=== PATIENT | female | born 1945 | race Caucasian/White ===

== ENCOUNTER → 2016-05-16 | Outpatient (CLI) | payer MEDICARE, OTHER ==
[~2016-05-16] MED LIST: ALBUTEROL17 GM INH; ALDACTONE25 MG PO; ALLERGY25 MG PO; ATENOLOL PO; AZULFIDINE ENT500 MG PO; B COMPLEX1 CA1 PO; BENTYL20 M1 PO; BUDESONIDE0.5 MG/2 M IH; BUSPIRONE HCL15 MG PO; CARBIDOPA-LEVO1 EAC1 PO; CHOLESTERAL MED PO; DARVOCET-N 1001 TAB PO; DOXYCYCLINE PO; EFFEXOR XR PO; ESCITALOPRAM OX10 MG PO; ESCITALOPRAM OX20 MG PO; FLEXERIL10 MG PO; FOLIC ACID1 MG PO; KCL PO; KLONOPIN PO; KLOR-CON PO; LASIX20 MG PO; LEVOTHYROXINE75 MCG PO; LEVOXYL50 MC1 PO; METOPROLOL SUCC25 MG PO; MIRAPEX1 MG PO; MIRAPEX1.5 MG PO; MOBIC15 MG PO; MULTAQ400 MG PO; NAPROSYN500 MG PO; NIACIN500 M2 PO; OMEPRAZOLE20 M2 PO; OMEPRAZOLE40 M1 PO; OXAPROZIN600 MG PO; PACERONE PO; PERCOCET 5-3251 TAB PO; PERCOCET5/325 PO; PRADAXA75 MG PO; PRAMIPEXOLE DI0.5 MG PO; PREDNISOLONE5 MG PO; PRENATAL VITAMI1 TA4 PO; PROBENECID-COL1 EACH PO; PROTONIX PO; REQUIP1 MG PO; SEROQUEL XR150 MG PO; SPIRIVA18 MCG INH; XARELTO20 MG PO; ZYLOPRIM100 MG PO
--- NOTE | ~2016-05-16 | CT52 ---
[facility] A Service of [facility] & [facility] RADIOLOGY TEXT RESULTS PATIENT: PAUL VASQUEZ LOCATION: [facility] : 41 UNIT #: [id number] AGE: [address]: Jeny Leonard MD SEX: F ORDER DR: [id number] [address] [address] [id number] MR#: [id number] Acc #: [id number] NAME: PAUL VASQUEZ : 1945 SEX: F STUDY DATE/TIME: 05/16/2016 12:48 UNIT: [facility] ROOM: STUDY DESCRIPTION: CT Cervical Spine Wo Cont Attending Physician: Jeny Leonard M.D. Referring Physician: Jeny Leonard M.D. Ordering Physician: Jeny Leonard M.D. Primary Care Physician: Jeny Leonard M.D. MEDICAL IMAGING REPORT This report is preliminary unless electronic signature is present. EXAM Cervical spine CT no contrast, 05/16/2016 COMPARISON Prior cervical spine CT, 10/13/2012 HISTORY Several month history of left side neck pain radiating to left arm. History of cervical spine surgery approximally 24 years previously. TECHNIQUE This CT exam was performed with one or more of the following radiation dose reduction techniques: automatic exposure control, adjustment of mA and/or kV according to patient size, and iterative reconstruction. FINDINGS Redemonstrated changes of surgical fusion at C3-4 and C6-7 with a 7-1 anterolisthesis. No change in alignment. There is solid osseous union at 3-4. There is no evidence of loosening nor is there convincing evidence of solid osseous union at 6-7, that appearance is unchanged. There is a degenerative scoliosis and there is anterolisthesis at 3-4 and 7-1 but again these findings are unchanged since the prior study. No fracture or bone erosion or destruction at any level. The paraspinous soft tissues are remarkable for atherosclerotic vascular calcifications at the cervical carotid bifurcations. At 2-3, the canal and right foramen are normal and there is [id number] left foraminal narrowing. At 3-4, there is mild canal stenosis and moderate left and moderate to severe right foraminal stenosis. At 4-5, there is mild canal stenosis and no left but [id number] [facility] A Service of [facility] & [facility] RADIOLOGY TEXT RESULTS PATIENT: PAUL VASQUEZ LOCATION: [facility] : 41 UNIT #: [id number] AGE: [address]: Jeny Leonard MD SEX: F ORDER DR: right foraminal stenosis. At 5-6, there is minimal canal narrowing and minimal left but moderate right foraminal narrowing. At 6-7, there is mild canal stenosis and moderate to severe or severe right and moderate to severe left foraminal stenosis. At 7-1, there is no canal stenosis. The left foramen is normal but there is moderate or moderate to severe right foraminal stenosis. IMPRESSION Multilevel cervical degenerative change without convincing significant interval change since October 13, 2012. Dictated by... Varinder Paulson M.D. THIS IS AN ELECTRONICALLY VERIFIED REPORT Varinder Paulson M.D. at 05/17/2016 1:51 PM VAMSI/odin TD: 05/17/2016 08:49 JOB #: [id number] MEDICAL IMAGING REPORT Page 1 of 1
== END | disposition home or self-care (01) ==
LOC: SCT 12:39
DX: M54.12 Radiculopathy, cervical region (principal); M47.812 Spondylosis without myelopathy or radiculopathy, cervical region
CPT/HCPCS: 72125

== ENCOUNTER 2016-07-04 09:58 | Inpatient (IN) | payer MEDICARE, OTHER ==
--- NOTE | ~2016-07-04 | CO ---
Unit #: [id number] #: [id number] Patient: PAUL SALINAS [id number] [address] [address] [id number] MR#: [id number] NAME: PAUL SALINAS ROOM: [facility] Age: 71 Sex: F Admission Date: 07/04/2016 : 1945 Attending Physician: Laura Arana M.D. Primary Care Physician: Jeny Leonard M.D. Consultation Date: 07/04/2016 CONSULTATION REPORT CHIEF COMPLAINT Right hip injury. HISTORY OF PRESENT ILLNESS Ms. Salinas is a 71-year-old female known to me who fell at home landing on her right hip. She is actually in the process of being scheduled for a shoulder replacement. She was going through medical clearance and had recently been cleared. However, she was at home when she tripped and fell outside landing on her right hip. She was unable to bear weight. She was brought to the emergency room where x-rays were taken. She was noted to have a displaced femoral neck fracture. She was admitted to the medical service. She notes pain in the hip. No prior problems with the hip. It is worse with motion, it is better with rest. She describes a dull ache. PAST MEDICAL HISTORY 1. History of alcohol and polysubstance abuse. 2. Atrial fibrillation on Pradaxa. 3. Hypertension. 4. CHF. 5. COPD. 6. Sleep apnea. 7. GERD. 8. Anxiety. 9. Depression. PAST SURGICAL HISTORY 1. Colonoscopy and EGD. 2. Bilateral shoulder surgery. 3. Neck surgery. 4. Appendectomy. 5. Tubal ligation. 6. Cataract surgery. 7. Pacemaker placement. HOME MEDICATIONS 1. Aldactone. 2. Probenecid. 3. Pacerone. 4. Folic acid. 5. Pramipexole. 6. Escitalopram. 7. Seroquel. 8. Carbidopa/levodopa. 9. Omeprazole. Unit #: [id number] #: [id number] Patient: PAUL SALINAS 10. Flexeril. 11. Potassium. 12. Pradaxa. 13. Levothyroxine. ALLERGIES No known drug allergies. SOCIAL HISTORY The patient lives with her . She does drink alcohol daily. She does not smoke. She used to smoke. No illicit drug use. FAMILY HISTORY Noncontributory. REVIEW OF SYSTEMS No other pertinent positives or negatives noted other than what is mentioned in the HPI. She reports she has not taken her Pradaxa for about a week. PHYSICAL EXAMINATION VITAL SIGNS: Temperature 98.2 degrees Fahrenheit, pulse 73, respiratory rate 17, oxygen saturation 97%, blood pressure 107/70. GENERAL: Patient is alert and oriented for examination. She is in no acute distress. HEENT: Atraumatic, normocephalic. Extraocular movements are intact. Mucous membranes are moist. NECK: Cervical spine is midline. No JVD. Full motion. LUNGS: Breathing is nonlabored and chest rise is symmetric. HEART: Pulse irregularly irregular. ABDOMEN: Soft, nontender, nondistended. EXTREMITIES: No clubbing, cyanosis, or edema of the extremities. No skin lesions. Focused examination of the right lower extremity reveals the leg is shortened and externally rotated. There is painful log roll. Tenderness to palpation over the hip region. She can flex and extend her ankle and toes. DIAGNOSTIC STUDIES LABORATORY: BMP normal. INR normal. CBC normal. IMAGING: AP pelvis and right lateral hip x-ray reviewed. There is a displaced femoral neck fracture noted. IMPRESSION This is a 71-year-old female with a right femoral neck fracture. PLAN We will plan for right hip bipolar hemiarthroplasty. Risks, benefits, and alternatives to surgery were discussed with the patient. She would like to proceed. She is awaiting clearance. As noted, she had clearance through our office for shoulder surgery. Obviously, this will be on hold for awhile. She could have a clear liquid diet. Will plan for surgery in the afternoon tomorrow, 07/05/2016. Risks and benefits of the surgery were discussed. Risks include, but are not limited to, infection, bleeding, nerve injury, blood clots, risks associated with anesthesia, leg length discrepancy, dislocation, need for further surgery and possibly . Unit #: [id number] #: [id number] Patient: PAUL SALINAS Dictated by... Enrique Gillespie M.D. MEDHAT/jumana TD: 07/04/2016 20:26 JOB #: [id number] CONSULTATION REPORT Page 1 of 1 X X CONSULTATION REPORT
--- NOTE | ~2016-07-04 | EKG ---
PATIENT: PAUL VASQUEZ UNIT #: [id number] Ventricular Rate: 60 BPM Atrial Rate: 340 BPM P-R Interval: 264 ms QRS Duration: 132 ms Q-T Interval: 466 ms QTC Calculation(Bezet): 466 ms P Seiling: 95 degrees Calculated R Seiling: -47 degrees Calculated T Seiling: 113 degrees Diagnosis Line: AV dual-paced rhythm with prolonged AV conduction Diagnosis Line: Abnormal ECG Diagnosis Line: When compared with ECG of 19-FEB-2013 16:05, Diagnosis Line: Electronic ventricular pacemaker has replaced Diagnosis Line: Sinus rhythm Diagnosis Line: Confirmed by JIM HURLEY MD ([id number]) on 07/05/2016 Diagnosis Line: 11:13:39 PM INTERPRETING MD: XAVI KEITA
--- NOTE | ~2016-07-04 | EKG ---
PATIENT: PAUL VASQUEZ UNIT #: [id number] Ventricular Rate: 114 BPM Atrial Rate: 114 BPM QRS Duration: 142 ms Q-T Interval: 384 ms QTC Calculation(Bezet): 529 ms Calculated R [place]: -35 degrees Calculated T [place]: 124 degrees Diagnosis Line: Atrial fibrillation with rapid ventricular Diagnosis Line: response Diagnosis Line: Left axis deviation Diagnosis Line: Left ventricular hypertrophy with QRS widening Diagnosis Line: T wave abnormality, consider lateral ischemia or Diagnosis Line: digitalis effect Diagnosis Line: Abnormal ECG Diagnosis Line: When compared with ECG of 04-JUL-2016 10:25, Diagnosis Line: Atrial fibrillation has replaced Electronic Diagnosis Line: ventricular pacemaker Diagnosis Line: Vent. rate has increased BY 54 BPM Diagnosis Line: Confirmed by JONAH JERRY MD ([id number]) on 07/06/2016 Diagnosis Line: 8:09:25 PM INTERPRETING MD: ROSALINO KEITA
--- NOTE | ~2016-07-04 | DS ---
Unit #: [id number] #: [id number] Patient: PAUL VASQUEZ [id number] [address] [place], [place] [address] [id number] MR#: [id number] NAME: PAUL VASQUEZ ROOM: [facility] Age: 71 Sex: F Admission Date: 07/04/2016 : 1945 Discharge Date: 07/07/2016 Attending Physician: Yolanda Jang M.D. Primary Care Physician: Jeny Leonard M.D. DISCHARGE SUMMARY DISCHARGE DIAGNOSES 1. Right femoral fracture. 2. Hypertension. 3. Alcohol dependence. 4. Hypomagnesemia. 5. Moderate protein calorie malnutrition. 6. Chronic systolic heart failure. 7. Atrial fibrillation on chronic anticoagulation. 8. Acute blood loss/postoperative anemia. HOSPITAL COURSE The patient is a 71-year-old female admitted to [facility] on 07/04/2016 after a fall and right hip fracture. She was seen by Cardiology postoperatively and ultimately decided to be acceptable risk for surgery. She was taken to the operating room on 07/05/2016 where she underwent right hip bipolar hemiarthroplasty. She has tolerated the procedure well. At the time of discharge, her antihypertensives are being held secondary to some hypotension that is resolving. Initial blood pressures were 90 systolic and are now 100s at time of discharge so will likely improve with convalescence and ultimately blood pressure medications should be restarted when appropriate. DISCHARGE MEDICATIONS 1. Combivent per nebulizer q.4 h. as needed. 2. Amiodarone 200 mg p.o. daily. 3. Tylenol 325 mg p.o. q.4 h. p.r.n. pain or fever. 4. Pradaxa 75 mg p.o. b.i.d. 5. Lexapro 20 mg p.o. daily. 6. Seroquel 150 mg p.o. h.s. 7. Bisacodyl 10 mg suppository p.r.n. constipation. 8. Senna S one tab p.o. b.i.d. 9. Pramipexole 0.5 mg p.o. h.s. 10. Carbidopa/levodopa 25/250 mg one p.o. h.s. 11. Lortab 10 one p.o. q.4 h. p.r.n. moderate to severe pain. 12. Aldactone 25 mg p.o. b.i.d. 13. Omeprazole 40 mg p.o. daily. 14. Flexeril 10 mg p.o. t.i.d. p.r.n. 15. Synthroid 75 mcg daily. 16. Colchicine/probenecid one tab p.o. daily. 17. Folic acid 1 mg daily. DISPOSITION Unit #: [id number] #: [id number] Patient: PAUL VASQUEZ Patient being discharged to rehab. FOLLOWUP Patient should follow with Dr. Gillespie, orthopedics, in 2 weeks. Dictated by... Austin López M.D. VIRGILIO/jumana TD: 07/07/2016 17:46 JOB #: [id number] DISCHARGE SUMMARY Page 1 of 1 X Austin López MD X DISCHARGE SUMMARY
--- NOTE | ~2016-07-04 | CR151 ---
[facility] A Service of [facility] & [facility] RADIOLOGY TEXT RESULTS PATIENT: PAUL VASQUEZ LOCATION: [place] [address] : [birth year] UNIT #: [id number] AGE: [address]: Laura Arana MD SEX: F ORDER DR: [id number] [facility] [address] [place], [place] [address] [id number] MR#: [id number] Acc #: [id number] NAME: PAUL VASQUEZ : 1945 SEX: F STUDY DATE/TIME: 07/04/2016 10:42 UNIT: [facility] ROOM: STUDY DESCRIPTION: CR Hip Min 2 Views Rt Attending Physician: Corinne Montoya M.D. Ordering Physician: Corinne Montoya M.D. Primary Care Physician: Jeny Leonard M.D. MEDICAL IMAGING REPORT This report is preliminary unless electronic signature is present EXAM 2 views right hip INDICATIONS Right hip pain starting today after a fall. FINDINGS No oral or dilated. There is a right femoral neck fracture with the femur displaced superiorly relative to the femoral head. Old left inferior pubic ramus fracture is seen. No additional fractures are identified. IMPRESSION Right femoral neck fracture and old left radius fracture. Dictated by... Lashae Springer M.D. THIS IS AN ELECTRONICALLY VERIFIED REPORT Lashae Springer M.D. at 07/04/2016 5:20 PM AFF/to TD: 07/04/2016 12:50 JOB #: [id number] MEDICAL IMAGING REPORT Page 1 of 1 COPY
--- NOTE | ~2016-07-04 | HP ---
Unit #: [id number] #: [id number] Patient: PAUL VASQUEZ [id number] [place] [id number] [facility]. [place], [place] [address] [id number] MR#: [id number] NAME: PAUL VASQUEZ ROOM: Age: 71 Sex: F Admission Date: 07/04/2016 : 1945 Attending Physician: Corinne Montoya M.D. Primary Care Physician: Jeny Leonard M.D. HISTORY AND PHYSICAL CHIEF COMPLAINT Fall, right hip pain. HISTORY OF PRESENT ILLNESS The patient is a 71-year-old female with past medical history of hypertension, atrial fibrillation, chronic anticoagulation with Pradaxa, CHF, COPD, obstructive sleep apnea, GERD, anxiety, depression, alcohol abuse and marijuana abuse who presented to the emergency department for evaluation of the above. The patient is a relatively poor historian. She was apparently in her usual state of health until the morning of admission when she was trying to hang something on her porch and fell. She states that she had on "clogs" and tried to grab on to a swing, which twisted, and she fell. She states that she experienced the immediate onset of right hip pain. She was brought to the emergency department for further evaluation. In the emergency department a right hip x-ray was done and showed right femoral neck fracture. She is being admitted to [facility] for evaluation and further treatment. PAST MEDICAL HISTORY 1. Admission to [facility] within the past year (no records). 2. Admission to [facility] May 28 through June 01, 2012 for alcohol and polysubstance abuse. 3. Atrial fibrillation on chronic anticoagulation with Pradaxa, followed by Dr. Novoa. 4. Hypertension. 5. CHF. 6. COPD, not on home oxygen. The patient sees Dr. Parmar. 7. Obstructive sleep apnea, noncompliant with CPAP. 8. GERD. 9. Anxiety, depression. PAST SURGICAL HISTORY 1. Colonoscopy and EGD. 2. Bilateral shoulder surgery. 3. Cervical disk surgery. 4. Appendectomy. 5. Tubal ligation. 6. Cataract surgery. 7. Pacemaker placement. SOCIAL HISTORY Unit #: [id number] #: [id number] Patient: PAUL VASQUEZ The patient lives with her . She is a daily drinker. She drinks 3-4 glasses of wine daily. The patient quit smoking 10 years ago. She has at least a 20 pack-year smoking history. FAMILY HISTORY Notable for her mother being alive at the age of 92. Her dad at the age of 32 of traumatic injuries. ALLERGIES No known allergies. HOME MEDICATIONS 1. Aldactone 25 mg twice daily. 2. Probenecid Colchicine daily. 3. Pacerone 200 mg daily. 4. Folic acid 1 mg daily. 5. Pramipexole 0.5 mg at bedtime. 6. Escitalopram 20 mg daily. 7. Seroquel 150 mg at bedtime. 8. Carbidopa/levodopa at bedtime. 9. Omeprazole 40 mg daily. 10. Flexeril 10 mg t.i.d. 11. Potassium 10 mEq twice daily. 12. Pradaxa 75 mg twice daily. 13. Levothyroxine 75 mcg daily. REVIEW OF SYSTEMS A complete review of systems is negative except as indicated in the HPI. The patient denies any chest pain. No difficulty breathing. No fever. No cough or cold symptoms. She denies ever having any problems with anesthesia. She states that she has not been taking her Pradaxa for the past week due to possible shoulder surgery. Additionally, the patient denies a history of Parkinson disease. She states that she is on the carbidopa/levodopa for restless leg. PHYSICAL EXAMINATION VITAL SIGNS: Temperature is 97.6, pulse 60, respirations 15, blood pressure 130/74, oxygen saturation 96% on room air. GENERAL: The patient is a female who is sleeping but wakes to voice. HEENT: The head is atraumatic. Mucous membranes are moist. NECK: Supple. Trachea is midline. CARDIOVASCULAR: Regular rate and rhythm. RESPIRATORY: Lungs are clear to auscultation bilaterally with no increased work of breathing. ABDOMEN: Soft, nontender with bowel sounds present in all 4 quadrants. EXTREMITIES: The right hip is tender to palpation and has decreased range of motion secondary to pain. There is no pedal edema. NEUROLOGIC: The patient is oriented x3. She follows commands. PSYCHIATRIC: The patient demonstrates relatively poor insight. She is cooperative. SKIN: Skin of examined areas is warm and dry. DIAGNOSTIC TESTS CARDIOVASCULAR: EKG shows paced rhythm with a rate of 60 beats per minute. IMAGING: Chest x-ray shows cardiomegaly with no evidence of vascular Unit #: [id number] #: [id number] Patient: PAUL VASQUEZ congestion. Right hip x-ray shows femoral neck fracture and old left radius fracture. LABORATORY: Complete blood count is essentially normal. INR is 1.1. Blood alcohol level is less than 5. Comprehensive metabolic panel notable for alkaline phosphatase of 156, total protein 5.7, albumin of 2.9. Urinalysis is essentially negative. Urine tox screen is positive for marijuana, opiates and tricyclics. ASSESSMENT 1. The patient is a 71-year-old female with right femoral neck fracture. The patient's revised Feliciano Cardiac Risk Index is consistent with at least a 1% risk of cardiac , nonfatal myocardial infarction, nonfatal cardiac arrest based on the possible history of heart failure. There is not an echocardiogram in [facility]. The patient possibly had a cardiac catheterization and/or stress test within the past 5 years at [facility]. She sees Dr. Novoa. 2. Status post fall. 3. Hypertension. 4. Atrial fibrillation, on chronic anticoagulation with Pradaxa. The patient has been off Pradaxa for the past week for possible shoulder surgery. 5. Congestive heart failure with unknown ejection fraction. 6. COPD. 7. Obstructive sleep apnea, noncompliant with CPAP. 8. GERD. 9. Anxiety, depression. 10. Alcohol abuse. The patient is a daily drinker. 11. Marijuana abuse. PLAN 1. Admit to intermediate level. 2. Healthy heart diet if passes bedside swallow. 3. NPO after midnight for surgical intervention. 4. Hold Pradaxa for possible surgical intervention. 5. Consult Dr. Gillespie regarding right femoral neck fracture. 6. Consult Dr. Avila for cardiac clearance. 7. Get records from [facility], including cardiac cath and stress test if available. 8. Bed rest. 9. Fall precautions. 10. Serial cardiac enzymes. 11. Supplemental oxygen. 12. DuoNeb p.r.n. 13. Morphine p.r.n. 14. Zofran p.r.n. 15. Alcohol withdrawal protocol. 16. Check magnesium level. 17. Repeat labs in the morning including INR. 18. Additional workup and consultants based on above. 19. Regarding code status, the patient is a full code. Dictated by Laura Arana M.D. JESSICA/angela Unit #: [id number] #: [id number] Patient: PAUL VASQUEZ TD: 07/04/2016 15:34 JOB #: [id number] HISTORY AND PHYSICAL Page 1 of 1 X Laura Arana MD X HISTORY AND PHYSICAL
--- NOTE | ~2016-07-04 | CO ---
Unit #: [id number] #: [id number] Patient: PAUL SALINAS [id number] [place], [place] [address] [id number] I MR#: [id number] NAME: PAUL SALINAS ROOM: [facility] Age: 71 Sex: F Admission Date: 07/04/2016 : 1945 Attending Physician: Laura Arana M.D. Primary Care Physician: Jeny Leonard M.D. Consultation Date: 07/04/2016 CONSULTATION REPORT CHIEF COMPLAINT Status post fall with hip fracture. We have been asked to see for surgical clearance. HISTORY OF PRESENT ILLNESS Ms. Salinas is a 71-year-old, elderly, white female who was seen in the emergency room. She was asleep when I approached her. The patient was difficult to awaken and difficult to bring to present. It took a little bit before she admitted that she fell. She said she fell outside in the backyard, out by the pond. Apparently her found her and called EMS. There is no family at the bedside at present. She states that Dr. Novoa is her cardiology doctor. PAST MEDICAL HISTORY Longstanding history of alcohol abuse, gastroesophageal reflux disease with a large hiatal hernia, atrial fibrillation, chronic anticoagulation, hypertension, congestive heart failure, COPD, obstructive sleep apnea, anxiety and depression, marijuana use. PAST SURGICAL HISTORY Bilateral rotator cuff repair, cervical disc surgery x2, appendectomy, tubal ligation, bilateral cataract removal. HOME MEDICATIONS Citalopram 20 mg daily; Seroquel 150 mg at bedtime; carbidopa/levodopa 25/250 at bedtime; omeprazole 40 mg daily; Flexeril 10 mg daily; Aldactone 25 mg twice daily; probenecid/colchicine daily; Pacerone 200 mg daily; folic acid 100 mg daily; pramipexole 0.5 mg at bedtime; potassium 10 mEq twice daily; Pradaxa 75 mg twice daily; levothyroxine 75 mcg daily. ALLERGIES No known allergies. SOCIAL HISTORY Patient states she quit smoking ten years ago. Prior to that she started smoking at the age of 32. She tells me that she drinks a small bottle of wine once in a while. There is a documented history of one time six beers, plus a half pint of whiskey daily. I currently do not know how much the patient drinks. Marijuana use daily. FAMILY HISTORY Noncontributory. Patient lives with her who again is currently not at bedside. Unit #: [id number] #: [id number] Patient: PAUL SALINAS REVIEW OF SYSTEMS I believe these are unreliable but patient denies fever or chills, denies hematuria, denies melena. Status has been off of her Pradaxa for one week for anticipated shoulder surgery. Otherwise she denies any problems or issues. PHYSICAL EXAMINATION CONSTITUTIONAL: Poorly nourished, mildly cachectic, white female who was awakened from sleep and was confused and then did arouse to a more lucid state. VITAL SIGNS: Temperature 97.7, pulse 69, respirations 16, blood pressure 118/83, 5 feet 8 inches, 57.6 kg. HEENT: Normocephalic atraumatic. No xanthelasma. Pupils equal, round, reactive to light. Extraocular movements intact. No jugular venous distention. No elevated CVP. LUNGS: Clear to auscultation bilaterally. Mildly decreased bases. HEART: S1 and S2. 2/6 systolic murmur. No S3 or S4. Positive bowel sounds. ABDOMEN: Soft, nontender, nondistended. No clubbing, cyanosis or edema. 2+ pulses bilaterally. DIAGNOSTIC STUDIES IMAGING STUDIES: Chest x-ray show cardiomegaly, no evidence of vascular congestion, left diaphragmatic hernia. No acute infiltrates. Left-sided pacemaker. No pneumothorax. No pleural effusion. No displaced rib fractures. Two views of the right hip - right femoral neck fracture and old left radius fracture. CT of the head - no acute traumatic findings. No acute intracranial hemorrhage, mass lesion or acute infarct, galvan-white differentiation is normal. LABORATORY DATA: Chemistry - sodium 136, potassium 4.3, chloride 102, CO2 25, BUN 7, creatinine 0.9, glucose 101, total protein 5.7, albumin 2.9, total bili 0.8, direct bili 0.3, bili indirect 0.5, AST 35, ALT 28, alk phos 156. Alcohol is less than 5. Coagulation - PT 11.4, INR 1.1, PTT 27.8. Hemoglobin 13.0, hematocrit 39.7, white blood cell count 8.4, platelet count 326. Toxicology screen is positive for marijuana, positive for opiates, positive for TCA. Urinalysis is negative. ASSESSMENT AND PLAN 1. Status post fall with right femoral neck fracture. 2. History of hypertension currently well controlled. 3. History of atrial fibrillation with chronic anticoagulation and permanent pacemaker. 12 lead EKG shows an AV dual paced rhythm. 4. Chronic anticoagulation, which has been on hold for one week, reportedly for anticipated shoulder surgery. 5. History of congestive heart failure. 6. COPD. 7. Obstructive sleep apnea. 8. Records have already been requested from [facility] regarding a cardiac cath and stress test if available per primary team. We will obtain a 2D echocardiogram. Cardiac clearance to come per Dr. Avila. Unit #: [id number] #: [id number] Patient: PAUL SALINAS Dictated by... Adrienne Kerr/stefani TD: 07/05/2016 05:41 JOB #: [id number] CONSULTATION REPORT Page 1 of 1 X X CONSULTATION REPORT
--- NOTE | ~2016-07-04 | CT71 ---
[facility] A Service of [facility] RADIOLOGY TEXT RESULTS PATIENT: PAUL VASQUEZ LOCATION: [facility] : 43 UNIT #: [id number] AGE: [address]: Corinne Montoya MD SEX: F ORDER DR: [id number] [facility] [address] [place], [place] [address] [id number] E MR#: [id number] Acc #: [id number] NAME: PAUL VASQUEZ : 1945 SEX: F STUDY DATE/TIME: 07/04/2016 11:21 UNIT: [facility] ROOM: STUDY DESCRIPTION: CT Head Wo Contrast Attending Physician: Corinne Montoya M.D. Ordering Physician: Corinne Montoya M.D. Primary Care Physician: Jeny Leonard M.D. MEDICAL IMAGING REPORT This report is preliminary unless electronic signature is present EXAM CT head INDICATIONS Trauma. Fall and hit the head. TECHNIQUE CT head without contrast. This CT exam was performed with one or more of the following radiation dose reduction techniques: automatic exposure control, adjustment of mA and/or kV according to patient size, and iterative reconstruction. COMPARISON CT head dated 10/25/2014. TECHNIQUE This CT exam was performed with one or more of the following radiation dose reduction techniques: automatic exposure control, adjustment of mA and/or kV according to patient size, and iterative reconstruction. FINDINGS There is no acute intracranial hemorrhage, mass lesion, or acute infarct. Russell-white differentiation is normal. Ventricles and basilar cisterns are normal in size configuration. No extraaxial collections. No acute osseous abnormalities. The visualized paranasal sinuses mastoid air cells are within normal limits. IMPRESSION No acute traumatic findings in the lungs. No interval change. [facility] A Service [facility] RADIOLOGY TEXT RESULTS PATIENT: PAUL VASQUEZ LOCATION: [facility] : 43 UNIT #: [id number] AGE: [address]: Corinne Montoya MD SEX: F ORDER DR: Dictated by... Isaías Davis M.D. THIS IS AN ELECTRONICALLY VERIFIED REPORT Isaías Davis M.D. at 07/04/2016 3:51 PM SHANTANU/mikey TD: 07/04/2016 13:27 JOB #: [id number] MEDICAL IMAGING REPORT Page 1 of 1 COPY
--- NOTE | ~2016-07-04 | CR206 ---
[facility] A Service of [facility] RADIOLOGY TEXT RESULTS PATIENT: PAUL VASQUEZ LOCATION: [place] [address] : [birth year] UNIT #: [id number] AGE: [address]: Yolanda Jang MD SEX: F ORDER DR: [id number] [facility] [address] [place], [place] [address] [id number] I MR#: [id number] Acc #: [id number] NAME: PAUL VASQUEZ : 1945 SEX: F STUDY DATE/TIME: 07/05/2016 19:03 UNIT: [facility] ROOM: Critical access hospital STUDY DESCRIPTION: CR Pelvis 1 or 2 Views Attending Physician: Yolanda Jang M.D. Ordering Physician: Enrique Gillespie M.D. Primary Care Physician: Jeny Leonard M.D. MEDICAL IMAGING REPORT This report is preliminary unless electronic signature is present EXAM Pelvis, 07/05/2016 HISTORY Postop right hip arthroplasty today. COMPARISON Right hip 07/04/2016 FINDINGS Two frontal views of the pelvis demonstrate total right hip arthroplasty. No evidence of hardware complication. Bony pelvis intact. Postsurgical changes in the adjacent soft tissues. IMPRESSION Stable postoperative changes status post right hip arthroplasty Dictated by... Nate Brewer M.D. THIS IS AN ELECTRONICALLY VERIFIED REPORT Nate Brewer M.D. at 07/09/2016 7:47 AM GIOVANY/mikey TD: 07/06/2016 01:28 JOB #: [id number] MEDICAL IMAGING REPORT Page 1 of 1 COPY
--- NOTE | ~2016-07-04 | OR ---
Unit #: [id number] #: [id number] Patient: PAUL SALINAS [id number] [address] [address] [id number] I MR#: [id number] NAME: PAUL SALINAS ROOM: [facility] Date of Procedure: 07/05/2016 Admission Date: 07/04/2016 Surgeon: Enrique Gillespie M.D. : 1945 Attending Physician: Yolanda Jang M.D. Primary Care Physician: Jeny Leonard M.D. OPERATIVE REPORT PREOPERATIVE DIAGNOSIS Right femoral neck fracture. POSTOPERATIVE DIAGNOSIS Right femoral neck fracture. PROCEDURE PERFORMED Right hip bipolar hemiarthroplasty. UTILITY ASSEMBLER Jimmy Salinas CFA. ANESTHESIA General endotracheal. COMPLICATIONS None. SPECIMENS None. DRAINS None. SURGICAL IMPLANTS Luisa bipolar hemiarthroplasty system with a size 11 Advocate stem and 47 mm outer diameter bipolar shell. There was a +10.5 mm neck length along with Palacos R+G cement. INDICATIONS FOR PROCEDURE Ms. Salinas is a 71-year-old, the patient of mine, who had fallen at home injuring her right hip. The patient was noted to have a displaced femoral neck fracture. She was admitted to the Medical Service. It was felt she would benefit from hemiarthroplasty. Risks, benefits, and alternatives of the surgery were discussed with the patient. Risks include, but are not limited to, infection, bleeding, nerve injury, blood clots, risks associated with anesthesia, need for further surgery, and possibly . DESCRIPTION OF PROCEDURE On 07/05/2016, the patient was seen in preoperative holding area, where her surgical site was marked. Preoperative antibiotics were received. H and P and consent updated. The patient was taken to the operating room Unit #: [id number] #: [id number] Patient: PAUL SALINAS and provided general anesthesia. She was moved to the left lateral decubitus position. Right hip was prepped and draped in typical sterile fashion. Time-out performed confirming the correct surgical site and procedure. Standard posterior approach to the hip was performed. Short external rotators were taken down. T-capsulotomy performed. The capsule was tagged with #1 Ethibond suture. Retractor was placed. The femoral neck cut was made. There were 2 fractures within the femoral neck. Once the cut was made, the bone was removed. Next, the femoral head was removed with a double prong device. It was measured at 47 mm. Trial head was placed and noted to be appropriate sized. Next, sequential broaching was taken up to 11 mm. Careful attention to anteversion noted. Trial head was placed and the hip was reduced. At this point, the instruments were removed. The femur was prepared for cementing. Restrictor was placed. It was thoroughly irrigated. Cement was mixed on the back table and injected into the canal once ready. It was packed using my thumb followed by placement of the stem. Again, careful attention to anteversion noted. Excess cement removed. After about 12 minutes, the cement had hardened. Trial heads were placed and the hip was reduced. It was felt a +10.5 mm neck length reduced the hip well with stability and matched leg lengths. The final bipolar head was placed and malleted in position. It was stable. Hip was reduced. Again, leg lengths were stable along with the hip joint. The remainder of 3 L normal saline containing bacitracin was pulsed through the wound. Capsulotomy repaired with 0 Vicryl suture along with the Ethibond. The short external rotators were repaired as well. Deep tissue closed with 0 Vicryl followed by 2-0 Vicryl for subcutaneous tissues and lakhwinder for skin. Xeroform, 4x4s, ABD pad, and tape were placed. Abduction pillow was placed. The patient was subsequently awakened from general anesthesia in stable condition and taken to PACU postoperatively. POSTOPERATIVE PLAN The patient will return to her room. She will be weightbearing as tolerated with posterior hip precautions. She will be on 24-hour antibiotic protocol. She will restart her Pradaxa for DVT prophylaxis. She will have SCDs. No complications encountered during the surgical procedure. Dictated by... Enrique Gillespie M.D. MEDHAT/lynne TD: 07/06/2016 02:09 JOB #: [id number] OPERATIVE REPORT Page 1 of 1 X X PROCEDURE OPERATIVE NOTE
--- NOTE | ~2016-07-04 | A ---
[facility] Nutrition Therapy DATE: 07/05/16 Patient: PAUL FRANKLIN CHRISTINA Physician: REBECCA Address: [address] [place] [address] Room/Bed: [address] [place] [address], Zip: [place] [address] Admit Date: 07/04/16 Date of : 41 Height: 5 8 Weight: 131 59.5 NUTRITIONAL ASSESSMENT: REASON: 5 points malnutrition risk score re: 45 lb weight loss + MD consult for "new admit" Admitting Dx: 71 y/o female admitted with R femur fracture, s/p fall PMH: HTN, CHF, A-FIB, COPD, GERD, anxiety, depression, ETOH/marijuana abuse, obstructive sleep apnea, hx smoking Anthropometrics: Ht: 68", Wt: 59.5 kg (131 lbs), BMI: 19 (normal) Past weights: 148 lbs on 10/25/14 128 lbs on 04/25/15 Labs: Glucose 140 Meds: Thiamine, Folic acid, Therapeutic formula, Synthroid, Morphine, PPI, Zofran prn, D5 w/Nacl @ 75 ml/hr I/O & Bowel function: Last BM 07/03 Skin Integrity: Scars BUE, no edema Assessment: Chart reviewed, events noted. See admitting dx and PMH as stated above. Patient has hx at [facility], drinks 3-4 glasses of wine daily, lives with her , also has hx of marijuana abuse. During the malnutrition risk screen patient reported a 45 lb weight loss is an unknown time frame, however her past weights as stated above do not reflect this loss. Per past weights she has lost maybe 17 lbs in the past 1.5 yrs, if weights are accurate. Visited patient's room @ 0939 hrs this morning and again @ 1235 hrs this afternoon and she asleep both times, did not wake to verbal cues. She is currently getting morphine due to her hip pain, so this is likely the reason she is sleeping a lot today. She is currently NPO awaiting possible hip surgery. Wrote recommendations in chart for regular diet and Ensure BID once she is appropriate for PO diet, she was previously on a healthy heart diet before NPO status. See RD recs below, will follow-up to determine weight history and further nutritional needs. Dx: Unintentional weight loss r/t unknown etilogy AEB 5 points malnutrition risk score. Intervention: Regular diet + Ensure Enlive BID Monitoring, Evaluation and Goals: [facility] Nutrition Therapy DATE: 07/05/16 Patient: PAUL FRANKLIN CHRISTINA Physician: REBECCA Address: [address] [place] [address] Room/Bed: [address] [place] [address], Zip: [place] [address] Admit Date: 07/04/16 Date of : [birth year] Height: 5 8 Weight: 131 59.5 1. Tolerance of diet advancement with PO intake > 50% of meals. 2. Prevent further unintentional weight loss. Monitor: Per protocol, criteria to determine if above goals met Recommendations: 1. Once medically feasible resume oral diet, suggest regular diet with Ensure Enlive BID- please order supplement once diet ordered. Available in chocolate, vanilla or strawberry. 2. Please weigh q 3 days for monitoring purposes. 3. Encourage ETOH cessation. 4. Continue vitamins. RD will follow hospital course Mild-moderate nutrition risk Respectfully, An Hyde, RD, LD [facility] cc: client file
--- NOTE | ~2016-07-04 | CR72 ---
[facility] A Service of [facility] & [facility] RADIOLOGY TEXT RESULTS PATIENT: PAUL VASQUEZ LOCATION: [place] [address] : 43 UNIT #: [id number] AGE: [address]: Laura Arana MD SEX: F ORDER DR: [id number] [facility] [address] [place], [place] [address] [id number] E MR#: [id number] Acc #: [id number] NAME: PAUL VASQUEZ : 1945 SEX: F STUDY DATE/TIME: 07/04/2016 10:40 UNIT: [facility] ROOM: STUDY DESCRIPTION: CR Chest Single View Portable Attending Physician: Corinne Montoya M.D. Ordering Physician: Corinne Montoya M.D. Primary Care Physician: Jeny Leonard M.D. MEDICAL IMAGING REPORT This report is preliminary unless electronic signature is present EXAM Portable chest radiograph INDICATIONS Right hip pain starting today. Patient also has shortness of air. She broke her right hip today. FINDINGS Cardiomegaly is identified although I do not see evidence of vascular congestion. Patient has a left diaphragmatic hernia. I do not see any acute infiltrates. Left-sided pacemaker is present. There is no pneumothorax or pleural effusion. No displaced rib fractures are seen. Dictated by... Lashae Springer M.D. THIS IS AN ELECTRONICALLY VERIFIED REPORT Lashae Springer M.D. at 07/04/2016 5:20 PM AFF/js TD: 07/04/2016 12:53 JOB #: [id number] MEDICAL IMAGING REPORT Page 1 of 1 COPY
[~2016-07-04 09:58] MED LIST changes: -ESCITALOPRAM OX20 MG PO; -KLOR-CON PO; -LEVOTHYROXINE75 MCG PO; -MIRAPEX1.5 MG PO; -OMEPRAZOLE40 M1 PO
[2016-07-04 11:28] LABS: BASOPHIL# 0.1 X10e3 (0-0.3); BASOPHIL% 0.7 % (0-2.5); EOSINOPHIL# 0.3 X10e3 (0-0.7); EOSINOPHIL% 4.1 % (0.0-7.0); HEMATOCRIT 39.7 % (35.0-45.0); LYMPHOCYTE# 1.3 X10e3 (1.0-3.5); LYMPHOCYTE% 15.7 % (17.0-45.0); MEAN CELL VOLUME 94.1 FL (83-96); MEAN CORPUSCULAR HEMOGLOBIN 30.7 PG (28-34); MEAN CORPUSCULAR HGB CONC 32.7 g/dL (30-36); MEAN PLATELET VOLUME 8.6 FL (6.5-11.5); MONOCYTE# 0.6 X10e3 (0-1.0); MONOCYTE% 7.3 % (3.0-12.0); NEUTROPHIL# 6.1 X10e3 (1.5-7.1); NEUTROPHIL% 72.2 % (40-75); PLATELET COUNT 326 X10e3 (140-420); RED BLOOD COUNT 4.22 X10e (3.90-5.30); RED CELL DISTRIBUTION WIDTH 17.1 % (11.0-15.5); WHITE BLOOD COUNT 8.4 X10e3 (4.0-10.5)
[2016-07-04 11:30] LABS: DIFF IND NO
[2016-07-04 11:40] LABS: INR 1.1; PARTIAL THROMBOPLASTIN TIME 27.8 SECONDS (23.5-31.3); PROTHROMBIN TIME (PATIENT) 11.4 SECONDS (9.6-11.5)
[2016-07-04 12:46] LABS: ALBUMIN SERUM 2.9 g/dL (3.5-5.0); BILIRUBIN, DIRECT 0.3 mg/dL (0.0-0.2); BILIRUBIN,INDIRECT 0.5 mg/dL (0.0-0.9); BILIRUBIN,TOTAL 0.8 mg/dL (0.2-2.0); BUN/CREATININE RATIO 7.77; CALCIUM SERUM 8.5 mg/dL (8.4-10.2); CREATININE SERUM 0.9 mg/dL (0.6-1.4); GLOM FILT RATE Estimated 63.5 mL/min (>60); POTASSIUM 4.3 mmol/L (3.5-5.1); PROTEIN TOTAL SERUM 5.7 g/dL (6.0-8.3)
[2016-07-04 12:54] LABS: URINE SOURCE CLEAN CATCH
[2016-07-04 12:58] LABS: URINE APPEARANCE CLEAR; URINE BILIRUBIN NEG (NEG); URINE BLOOD NEG (NEG); URINE COLOR YELLOW; URINE GLUCOSE NEG (NEG); URINE KETONE NEG (NEG); URINE LEUKOCYTE ESTERASE NEG (NEG); URINE NITRATE NEG (NEG); URINE PROTEIN NEG (NEG); URINE SPECIFIC GRAVITY 1.008 (1.003-1.035)
[2016-07-04 13:01] LABS: CULTURE INDICATED? NO
[2016-07-04 13:11] LABS: AMPHETAMINE NEG (NEG); BARBITURATES NEG (NEG); BENZODIAZEPINES NEG (NEG); COCAINE NEG (NEG); MARIJUANA POS (NEG); OPIATES POS (NEG); TRICYCLIC ANTIDEPRESSANTS POS (NEG); U METHADONE NEG (NEG)
[2016-07-04 16:56] LABS: %MB 4.4 % (0.0-4.0); MB 2.7 ng/ml
[2016-07-04 18:31] LABS: THYROID STIMULATING HORMONE 1.79 uIU/ml (0.34-5.60)
[2016-07-04 18:40] LABS: FREE THYROXIN (T4) 0.98 ng/dL (0.58-1.64)
[2016-07-04 21:55] LABS: CK TOTAL 58 IU/L (26-140)
[2016-07-05 03:50] LABS: HEMOGLOBIN 11.9 gm/dL (12.0-16.0); MEAN CORPUSCULAR HGB CONC 32.9 g/dL (30-36); MEAN PLATELET VOLUME 8.5 FL (6.5-11.5); RED BLOOD COUNT 3.83 X10e (3.90-5.30); RED CELL DISTRIBUTION WIDTH 16.9 % (11.0-15.5); WHITE BLOOD COUNT 8.7 X10e3 (4.0-10.5)
[2016-07-05 04:06] LABS: INR 1.1; PROTHROMBIN TIME (PATIENT) 11.8 SECONDS (9.6-11.5)
[2016-07-05 04:15] LABS: CK TOTAL 43 IU/L (26-140)
[2016-07-05 04:22] LABS: ALBUMIN SERUM 2.5 g/dL (3.5-5.0); BILIRUBIN,TOTAL 0.5 mg/dL (0.2-2.0); BUN/CREATININE RATIO 8.88; CALCIUM SERUM 7.9 mg/dL (8.4-10.2); CREATININE SERUM 0.9 mg/dL (0.6-1.4); GLOM FILT RATE Estimated 63.5 mL/min (>60); POTASSIUM 4.3 mmol/L (3.5-5.1); PROTEIN TOTAL SERUM 5.2 g/dL (6.0-8.3)
[2016-07-06 03:35] LABS: BASOPHIL% 0.1 % (0-2.5); EOSINOPHIL% 0.3 % (0.0-7.0); HEMOGLOBIN 11.5 gm/dL (12.0-16.0); LYMPHOCYTE# 1.4 X10e3 (1.0-3.5); LYMPHOCYTE% 11.1 % (17.0-45.0); MEAN CELL VOLUME 93.5 FL (83-96); MEAN CORPUSCULAR HEMOGLOBIN 30.7 PG (28-34); MEAN CORPUSCULAR HGB CONC 32.8 g/dL (30-36); MEAN PLATELET VOLUME 8.7 FL (6.5-11.5); MONOCYTE# 0.7 X10e3 (0-1.0); MONOCYTE% 5.6 % (3.0-12.0); NEUTROPHIL# 10.1 X10e3 (1.5-7.1); NEUTROPHIL% 82.9 % (40-75); PLATELET COUNT 227 X10e3 (140-420); RED BLOOD COUNT 3.74 X10e (3.90-5.30); RED CELL DISTRIBUTION WIDTH 16.5 % (11.0-15.5); WHITE BLOOD COUNT 12.2 X10e3 (4.0-10.5)
[2016-07-06 03:36] LABS: DIFF IND NO
[2016-07-06 03:49] LABS: ALBUMIN SERUM 2.1 g/dL (3.5-5.0); BILIRUBIN,TOTAL 0.6 mg/dL (0.2-2.0); CALCIUM SERUM 7.6 mg/dL (8.4-10.2); CREATININE SERUM 0.8 mg/dL (0.6-1.4); GLOM FILT RATE Estimated 73.2 mL/min (>60); MAGNESIUM 1.3 mg/dL (1.6-3.0); POTASSIUM 4.1 mmol/L (3.5-5.1); PROTEIN TOTAL SERUM 4.3 g/dL (6.0-8.3)
[2016-07-07 04:19] LABS: BASOPHIL% 0.4 % (0-2.5); EOSINOPHIL# 0.4 X10e3 (0-0.7); EOSINOPHIL% 4.4 % (0.0-7.0); LYMPHOCYTE# 1.4 X10e3 (1.0-3.5); LYMPHOCYTE% 15.1 % (17.0-45.0); MEAN CELL VOLUME 95.4 FL (83-96); MEAN CORPUSCULAR HEMOGLOBIN 31.4 PG (28-34); MEAN CORPUSCULAR HGB CONC 32.9 g/dL (30-36); MEAN PLATELET VOLUME 9.1 FL (6.5-11.5); MONOCYTE# 0.9 X10e3 (0-1.0); MONOCYTE% 9.1 % (3.0-12.0); NEUTROPHIL# 6.8 X10e3 (1.5-7.1); PLATELET COUNT 165 X10e3 (140-420); RED BLOOD COUNT 2.85 X10e (3.90-5.30); RED CELL DISTRIBUTION WIDTH 16.5 % (11.0-15.5); WHITE BLOOD COUNT 9.5 X10e3 (4.0-10.5)
[2016-07-07 04:23] LABS: DIFF IND NO; HEMATOCRIT 27.3 % (35.0-45.0); HEMOGLOBIN 8.9 gm/dL (12.0-16.0)
[2016-07-07 04:45] LABS: ALBUMIN SERUM 1.8 g/dL (3.5-5.0); BILIRUBIN,TOTAL 0.4 mg/dL (0.2-2.0); BUN/CREATININE RATIO 17.14; CREATININE SERUM 0.7 mg/dL (0.6-1.4); POTASSIUM 3.9 mmol/L (3.5-5.1)
[2016-09-27] MEDS ORDERED: MIRAPEX1.5 MG PO (09:04)
[2016-09-27] MEDS ORDERED: PROBENECID-COL1 EACH PO (11:12)
[2016-09-27] MEDS ORDERED: ALDACTONE25 MG PO (11:12)
[2016-09-27] MEDS ORDERED: PACERONE PO (11:13)
[2016-09-27] MEDS ORDERED: FOLIC ACID1 MG PO (11:13)
[2016-09-27] MEDS ORDERED: PRAMIPEXOLE DI0.5 MG PO (11:13)
[2016-09-27] MEDS ORDERED: ESCITALOPRAM OX20 MG PO (11:14)
[2016-09-27] MEDS ORDERED: SEROQUEL XR150 MG PO (12:18)
[2016-09-27] MEDS ORDERED: CARBIDOPA-LEVO1 EAC1 PO (12:19)
[2016-09-27] MEDS ORDERED: OMEPRAZOLE40 M1 PO (12:20)
[2016-09-27] MEDS ORDERED: FLEXERIL10 MG PO (12:23)
[2016-09-27] MEDS ORDERED: KLOR-CON PO (12:23)
[2016-09-27] MEDS ORDERED: PRADAXA75 MG PO (12:24)
[2016-09-27] MEDS ORDERED: LEVOTHYROXINE75 MCG PO (12:28)
== END 2016-07-07 20:20 | DRG 470 ==
LOC: CED 09:58 → CEDOF 14:25 → C4B 14:25 → CEDOF 15:08 → CED 15:08 → C4B 17:15 → CEDOF 17:15 → C4B 17:15
PROVIDERS: Emergency Medicine; Family Medicine; Internal Medicine; Orthopaedic Surgery
PROC: B24BZZZ Ultrasonography of Heart with Aorta (ICD-10-PCS; 2016-07-04)
PROC: 0SRR0J9 Replacement of Right Hip Joint, Femoral Surface with Synthetic Substitute, Cemented, Open Approach (ICD-10-PCS; principal; 2016-07-05 16:00)
DX: S72.001A Fracture of unspecified part of neck of right femur, initial encounter for closed fracture (principal); E44.0 Moderate protein-calorie malnutrition; E83.42 Hypomagnesemia; I11.0 Hypertensive heart disease with heart failure; I50.22 Chronic systolic (congestive) heart failure; I48.2 Chronic atrial fibrillation; J44.9 Chronic obstructive pulmonary disease, unspecified; D62 Acute posthemorrhagic anemia; F32.9 Major depressive disorder, single episode, unspecified; Z68.1 Body mass index [BMI] 19.9 or less, adult; W18.30XA Fall on same level, unspecified, initial encounter; Y92.007 Garden or yard of unspecified non-institutional (private) residence as the place of occurrence of the external cause; Z87.891 Personal history of nicotine dependence; F10.20 Alcohol dependence, uncomplicated; Z79.01 Long term (current) use of anticoagulants; I95.2 Hypotension due to drugs; T46.5X5A Adverse effect of other antihypertensive drugs, initial encounter; Y92.230 Patient room in hospital as the place of occurrence of the external cause; G47.33 Obstructive sleep apnea (adult) (pediatric); K21.9 Gastro-esophageal reflux disease without esophagitis; F41.9 Anxiety disorder, unspecified; F12.10 Cannabis abuse, uncomplicated; Z95.0 Presence of cardiac pacemaker; M25.519 Pain in unspecified shoulder; M19.90 Unspecified osteoarthritis, unspecified site; Z91.19 Patient's noncompliance with other medical treatment and regimen; Z98.51 Tubal ligation status
CPT/HCPCS: 70450; 71010; 72170; 73502; 80048; 80053; 80076; 80307; 81003; 82550; 82553; 83735; 84439; 84443; 84484; 85025; 85027; 85610; 85730; 86592; 93005; 93306; 94760; 96374; 97110; 97116; 97162; 97166; 97530; 97535; 99285; C1776; G0480; G8978-GP; G8979-GP; G8987-GO; G8988-GO; J0690; J1170; J2270; J2370; J2405; J3010; J3411; J3475; J7042

== ENCOUNTER → 2016-09-14 | Outpatient (CLI) | payer MEDICARE, OTHER ==
[~2016-09-14] MED LIST changes: +ESCITALOPRAM OX20 MG PO; +KLOR-CON PO; +LEVOTHYROXINE75 MCG PO; +MIRAPEX1.5 MG PO; +OMEPRAZOLE40 M1 PO
--- NOTE | ~2016-09-14 | MY11 ---
[facility] A Service of [facility] & [facility] RADIOLOGY TEXT RESULTS PATIENT: PAUL VASQUEZ LOCATION: [facility] : 43 UNIT #: [id number] AGE: [address]: Jeny Leonard MD SEX: F ORDER DR: [id number] [address] [address] [id number] O MR#: [id number] Acc #: [id number] NAME: PAUL VASQUEZ : 1945 SEX: F STUDY DATE/TIME: 09/14/2016 11:36 UNIT: [facility] ROOM: STUDY DESCRIPTION: MY Mammogram Screening Dig Sony Attending Physician: Jeny Leonard M.D. Referring Physician: Jeny Leonard M.D. Ordering Physician: Jeny Leonard M.D. Primary Care Physician: Jeny Leonard M.D. MEDICAL IMAGING REPORT This report is preliminary unless electronic signature is present. EXAM Bilateral digital screening mammogram with CAD 09/14/2016 INDICATION 71-year-old female for routine screening. No reported problems. No personal or family history of breast cancer. No surgeries. TECHNIQUE CC and MLO views of the breasts were obtained and reviewed with an FDA-approved CAD device. COMPARISON 05/25/2014, 08/03/2010, 08/26/2006. FINDINGS Breast parenchyma is heterogeneously dense. This decreases sensitivity of screening mammography. Breast density appears increased from the prior study but the patient reports a 35-pound weight loss since the prior exam which probably accounts for the increased density. There is no new dominant nodule, mass or suspicious cluster of microcalcifications. Benign calcifications are present. Nodularity in the right breast on the MLO projection is unchanged. Skin fold artifact on the right projects over the pectoralis muscle. Portions of the left axilla are obscured by a left-sided pacemaker power pack device. IMPRESSION Benign screening mammogram. 1 year followup recommended. Patients over the age of 40 are entered into a reminder system with target due date for the next mammogram. A result letter will also be sent to the patient. [facility] A Service of [facility] & [facility] RADIOLOGY TEXT RESULTS PATIENT: PAUL VASQUEZ [id number] 41 UNIT #: [id number] AGE: [address]: Jeny Leonard MD SEX: F ORDER DR: BIRADS: 2 Benign finding Dictated by... Jose Prather M.D. THIS IS AN ELECTRONICALLY VERIFIED REPORT Jose Prather M.D. at 09/17/2016 3:14 PM SAI/stefany TD: 09/17/2016 14:11 JOB #: [id number] MEDICAL IMAGING REPORT Page 1 of 1
--- NOTE | ~2016-09-14 | BD1 ---
[facility] A Service of [facility] & [facility] RADIOLOGY TEXT RESULTS PATIENT: PAUL VASQUEZ LOCATION: [facility] : 43 UNIT #: [id number] AGE: [address]: Jeny Leonard MD SEX: F ORDER DR: [id number] [address] [address] [id number] O MR#: [id number] Acc #: [id number] NAME: PAUL VASQUEZ : 1945 SEX: F STUDY DATE/TIME: 09/14/2016 11:22 UNIT: [facility] ROOM: STUDY DESCRIPTION: BD Dexa Bone Dens 1+ Site Attending Physician: Jeny Leonard M.D. Referring Physician: Jeny Leonard M.D. Ordering Physician: Jeny Leonard M.D. Primary Care Physician: Jeny Leonard M.D. MEDICAL IMAGING REPORT This report is preliminary unless electronic signature is present. EXAM DXA scan 09/14/2016. HISTORY Status post menopause with no hormone replacement therapy. Fracture of right hip in last 10 years. Osteopenia. FINDINGS Bone mineral density in the lumbar spine from L1 through L4 is 0.838 g/cm2 which is 2.9 standard deviations below the mean when compared to the young adult reference population which is characteristic of osteoporosis. This is 0.9 standard deviations below the mean when compared to the age-matched population. Compared with 09/14/2013 there has been a decrease in bone mineral density in the lumbar spine of 34.2%. Bone mineral density in the left hip was 0.776 g/cm2 which is 1.8 standard deviations below the mean when compared to the young adult reference population which is characteristic of osteopenia. This is 0 standard deviations from the mean when compared to the age-matched population. Compared with 09/14/2013 there has been a decrease in bone mineral density in the left hip of 9.9%. Bone mineral density in the left forearm was 0.49 g/cm2 which is 4.5 standard deviations below the mean when compared to the young adult reference population which is characteristic of osteoporosis. This is 2.4 standard deviations below the mean when compared to the age-matched population. IMPRESSION Bone mineral density in the lumbar spine and the left forearm characteristic of osteoporosis and in the left hip characteristic of osteopenia. Compared with 09/14/2013 there has been a decrease in bone mineral density in the lumbar spine and the left hip. Dictated by... [facility] A Service of [facility] RADIOLOGY TEXT RESULTS PATIENT: PAUL VASQUEZ [facility] #: [id number] : 41 UNIT #: [id number] AGE: [address]: Jeny Leonard MD SEX: F ORDER DR: Gerson Reeder M.D. THIS IS AN ELECTRONICALLY VERIFIED REPORT Gerson Reeder M.D. at 09/18/2016 2:12 PM KRT/barney TD: 09/18/2016 06:11 JOB #: [id number] MEDICAL IMAGING REPORT Page 1 of 1
== END | disposition home or self-care (01) ==
LOC: SMAM 09-10 09:00
DX: Z12.31 Encounter for screening mammogram for malignant neoplasm of breast (principal); M81.0 Age-related osteoporosis without current pathological fracture; Z78.0 Asymptomatic menopausal state
CPT/HCPCS: 77080; G0202

== ENCOUNTER → 2016-09-27 | Outpatient (CLI) | payer MEDICARE, OTHER | END | disposition home or self-care (01) | LOC: CSSDAY 08:43 | DX: M81.0 Age-related osteoporosis without current pathological fracture (principal) | CPT/HCPCS: 96374; J3489 ==